=== PATIENT | female | born 1970 | race Two or more races ===

== ENCOUNTER → 2016-10-09 | Outpatient (CLI) | payer OTHER ==
[2015-05-09 08:18] VITALS: BP 110/68
[~2016-10-09] MED LIST: AMOX1TAB61 PO; CEPH-264 PO; FERR325T58 PO; IBUP100T6 PO; NAPR500T3 PO
--- NOTE | 2016-10-20 13:31 | KCIC ---
Bilateral digital screening mammograms with CAD: HISTORY Routine screening. COMPARISON Comparison is made to previous study dated 03/19/2015. FINDINGS Breast density category B. The skin and nipples show no abnormalities. No abnormal lymph nodes are seen in the axilla. The breast parenchyma shows scattered fibroglandular density. There are no dominant masses, suspicious calcifications or architectural distortions. IMPRESSION No evidence of malignancy. Recommend routine annual mammographic screening. This study was interpreted with the benefit of Computerized Aided Detection (CAD). Mammography is not 100% sensitive in detecting breast cancer. Therefore, a self breast exam and a clinical breast exam are very important. A negative mammogram does not negate a clinically suspicious finding and should not result in a delay in biopsying a clinically suspicious abnormality. BI-RADS category 1. Negative. This patient's information has been entered into a reminder system for the patient to be notified with the results of this examination and a target date for her next mammograms. Electronically signed by: Yue Frey MD (Oct 20, 2016 13:30:01)
== END | disposition home or self-care (01) ==
LOC: KCIC MAMMO 13:55
PROVIDERS: ATTEND Physician Assistant Medical
DX: Z12.31 Encounter for screening mammogram for malignant neoplasm of breast (principal)
CPT/HCPCS: G0202; 77067

== ENCOUNTER 2016-11-20 16:31 | Emergency (ER) | payer OTHER ==
[~2016-11-20] VITALS: Ht 152.4 cm; Wt 77.1 kg
[2016-11-20 17:10] VITALS: BP 117/69
[2016-11-20] MEDS ORDERED: AMOX875T PO (17:46)
--- NOTE | 2016-11-20 17:46 | PHYS DOC ---
Past Medical History Past Medical History: No Pertinent History Past Surgical History: Additional Past Surgical Histo: D &C Alcohol Use: None Drug Use: None Adult General Chief Complaint Chief Complaint: EARACHE/EAR PAIN HPI HPI Patient is a 45 year old female who presents with right ear pain and sore throat that began yesterday. Patient denies any fever coughing or congestion. Review of Systems Review of Systems Constitutional: See history of present illness Eyes: Denies change in visual acuity, redness, or eye pain [] HENT: Right ear pain and sore throat Respiratory: See history of present illness Cardiovascular: No additional information not addressed in HPI [] Musculoskeletal: Denies back pain or joint pain [] Integument: Denies rash or skin lesions [] Neurologic: Denies headache, focal weakness or sensory changes [] Endocrine: Denies polyuria or polydipsia [] Allergies Allergies Allergies Coded Allergies Type Severity Reaction Last Updated Verified No Known Drug Allergies 05/09/15 No Physical Exam Physical Exam Constitutional: Well developed, well nourished, no acute distress, non-toxic appearance. [] HENT: Normocephalic, atraumatic, bilateral external ears normal, oropharynx moist, no oral exudates, nose normal. [] Right TM is moderately injected with small amount of cloudy fluid, left TM is mildly injected. Eyes: PERRLA, EOMI, conjunctiva normal, no discharge. [] Neck: Normal range of motion, no tenderness, supple, no stridor. [] Skin: Warm, dry, no erythema, no rash. [] Back: No tenderness, no CVA tenderness. [] Extremities: No tenderness, no cyanosis, no clubbing, ROM intact, no edema. [] Neurologic: Alert and oriented X 3, normal motor function, normal sensory function, no focal deficits noted. [] Psychologic: Affect normal, judgement normal, mood normal. [] Current Patient Data Vital Signs Vital Signs Date Time Temp Pulse Resp B/P Pulse Ox O2 Delivery O2 Flow Rate FiO2 11/20/16 17:10 98.2 83 16 99 Room Air 98.2 EKG EKG [] Radiology/Procedures Radiology/Procedures [] Course & Med Decision Making Course & Med Decision Making Pertinent Labs and Imaging studies reviewed. (See chart for details) Patient has bilateral otitis media and pharyngitis. She was discharged with amoxicillin for 10 days. Tylenol/Motrin recommended for pain or fever. Follow- up with primary care doctor in 1-2 weeks. Dragon Disclaimer Dragon Disclaimer This electronic medical record was generated, in whole or in part, using a voice recognition dictation system. Departure Departure Impression: Primary Impression: Otitis media Additional Impression: Acute pharyngitis Disposition: 01 HOME, SELF-CARE Condition: STABLE Referrals: VJ MELARA (PCP) Follow-up with your own doctor in 1-2 weeks Patient Instructions: Otitis Media, Adult, Viral and Bacterial Pharyngitis Additional Instructions: You were seen for ear infection and sore throat. Please complete your antibiotics. Use saltwater gargles for sore throat. Take Tylenol or Motrin for pain or fever. Follow-up with the primary care doctor in 1-2 weeks. Scripts Amoxicillin 875 Mg Tablet1 Tab PO BID #20 TAB Prov:SARAH CHUN KARDEX CLERK 11/20/16 Problem Qualifiers Primary Impression: Otitis media Otitis media type: other nonsuppurative Laterality: bilateral Chronicity: acute Recurrence: not specified as recurrent Qualified Code: H65.193 - Other acute nonsuppurative otitis media, bilateral Additional Impression: Acute pharyngitis Pharyngitis/tonsillitis etiology: unspecified etiology Qualified Code: J02.9 - Acute pharyngitis, unspecified SARAH CHUN KARDEX CLERK Nov 20, 2016 17:46
== END 2016-11-20 17:58 | disposition home or self-care (01) ==
LOC: ER 16:31
DX: H65.193 Other acute nonsuppurative otitis media, bilateral (principal); J02.9 Acute pharyngitis, unspecified
CPT/HCPCS: 99283

== ENCOUNTER → 2017-04-27 | Day surgery (SDC) | payer OTHER ==
[~2017-04-27] MED LIST changes: +AMOX875T PO; +IV RINGERS,LACTATED 1000ML 1,000 ML IV SCH; +LIDOCAINE 1% 1 ML SYRINGE. ID PRN; +MIDAZOLAM HCL/PF 2 MG/2 ML VIAL. IV PRN; +SUCCINYLCHOLINE 200 MG/10 ML VIAL. ONE; +fentaNYL PF VIAL 100 MCG/2 ML VIAL IV PRN
[2017-04-27 13:28] LABS: NEG OBC UR NEG; POS OBC UR POS
--- NOTE | 2017-04-27 14:44 | PDOC1 ---
History and Physical Date of Admission Date of Admission DATE: 04/27/17 TIME: 14:38 Source Source: Chart review, Patient History of Present Illness History of Present Illness 46 y/o female with upper abdominal pain/dysphagia. Bloating, nausea and interscapular pain as well. 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 Not on PPI currently. Colonoscopy for anemia normal in 2014. Past Medical History Past Medical History Negative for chronic illnesses. Past Surgical History Past Surgical History "stomach surgery" Family History Family History: Cancer (breast, prostate), Diabetes Social History Smoke: <1 pack per day ALCOHOL: rare Drugs: None Current Medications Current Medications Current Medications Midazolam HCl (Versed) 2 mg PRN 1X PRN IV PRIOR TO PROCEDURE; Start 04/27/17 at 13:30; Stop 04/27/17 at 20:00 Fentanyl Citrate (Fentanyl 2ml Vial) 25 mcg PRN Q5MIN PRN IV X 2 DOSES FOR PAIN ; Start 04/27/17 at 13:30; Stop 04/27/17 at 20:00 Fentanyl Citrate (Fentanyl 2ml Vial) 50 mcg PRN Q5MIN PRN IV X 2 DOSES FOR PAIN ; Start 04/27/17 at 13:30; Stop 04/27/17 at 20:00 Ringer's Solution 1,000 ml @ 125 mls/hr Q8H IV Last administered on 04/27/17t 13:30; Start 04/27/17 at 13:19; Stop 04/28/17 at 01:18 Lidocaine HCl 2 ml 1X PRN PRN ID IV START; Start 04/27/17 at 13:30; Stop at 20:00 Active Scripts Active Reported Iron Supplement (Ferrous Sulfate) 325 Mg Tablet 1 Tab PO BID Advil (Ibuprofen) 100 Mg Tablet 100 Mg PO DAILY Allergies Allergies: Coded Allergies: Penicillins (Verified Allergy, Intermediate, 04/27/17) ROS Review of System Otherwise negative. Physical Exam General: Alert, Oriented X3, Cooperative, No acute distress Lungs: Clear to auscultation Heart: S1S2, RRR, no gallops, no murmurs Abdomen: Normal bowel sounds, Soft, No tenderness, No hepatosplenomegaly, No masses Rectal Exam: not examined Extremities: No cyanosis, No edema Skin: No significant lesion Neuro: Normal speech, Strength at 5/5 X4 ext, Normal tone, Sensation intact, Cranial nerves 3-12 NL, Reflexes 2+ Psych/Mental Status: Mental status NL, Mood NL Vitals Vitals Vital Signs Date Time Temp Pulse Resp B/P (MAP) Pulse Ox O2 Delivery O2 Flow Rate FiO2 04/27/17 13:24 98.0 73 20 100 98.0 Labs Labs Laboratory Tests Test 04/27/17 13:20 Urine Test Negative (NEG) Laboratory Tests Test 04/27/17 13:20 Urine Test Negative (NEG) VTE Prophylaxis Ordered VTE Prophylaxis Devices: No VTE Pharmacological Prophylaxi: No Assessment/Plan Assessment/Plan IMP: upper abd pain/dysphagia PLAN: EGD. ALL FRANCO MD Apr 27, 2017 14:44
--- NOTE | 2017-04-27 14:56 | PDOC4 ---
PROCEDURE Procedure EGD/polypectomy Ind: upper abdominal pain/dysphagia Meds: per anesthesia Findings: E--<grade I reflux at 40cm. No stricture, etc. G--5-6mm polyp, pedunculated, posterior wall antrum--snared off. D--Normal to second portion. Dwayne. well. IMP: Reflux, likely cause of symptoms. Gastric polyp. REC: Will recommend OTC PPI. Await path. Resume other meds, diet. F/u 2 weeks. ALL FRANCO MD Apr 27, 2017 14:56
[2017-04-27 15:08] VITALS: BP 129/87
--- NOTE | 2017-04-29 14:14 | PATHOLOGY ---
PATHOLOGY REPORT * * * * * * * * FINAL DIAGNOSIS: Gastric biopsy "body of stomach polyp": - Hyperplastic polyp. - There is no evidence of adenomatous change, high grade dysplasia or malignancy. ([facility]; 04/29/2017) REPORT ELECTRONICALLY SIGNED BY: Ismael Benavidez M.D. DATE/TIME: 04/29/2017 14:13 * * * * * * * * GROSS PATHOLOGY: Received in formalin labeled "Analy Goel, body of stomach polyp," are multiple segments of otoole soft tissue measuring from 0.2 up to 0.8 cm in maximum dimension. The specimen is submitted entirely in cassette A1. ([facility]; 04/28/17) INITIAL CPT CODE(S): A; 11107 Professional services performed [place] [facility] [address] Technical services performed by [facility] at [address] [place] [address]. SPECIMEN(S) RECEIVED: A.Body of stomach polyp CLINICAL HISTORY: Abdominal pain, dysphagia PATIENT: ANALY GOEL /AGE: 512/15/1970 (Age: 46) PATIENT #: [id number] ALT CASE #: SPECIMEN COLLECTION DATE: 04/27/2017 SPECIMEN RECEIVED DATE: 04/28/2017 [facility] - [address] [place] [address] - PHONE: [phone] * * * END OF REPORT * * *
== END | disposition home or self-care (01) ==
LOC: SURG 13:02
PROVIDERS: ATTEND Internal Medicine Gastroenterology
DX: K31.7 Polyp of stomach and duodenum (principal); K21.0 Gastro-esophageal reflux disease with esophagitis; J45.909 Unspecified asthma, uncomplicated; E66.9 Obesity, unspecified; Z68.41 Body mass index [BMI] 40.0-44.9, adult; D64.9 Anemia, unspecified; Z72.0 Tobacco use; Z88.0 Allergy status to penicillin
CPT/HCPCS: 81025; 88305; J0330

== ENCOUNTER 2018-03-22 20:35 | Emergency (ER) | payer SELFPAY, OTHER ==
[2018-03-22 20:50] LABS: URINE HCG POC HCG NEGATIVE (Negative)
[2018-03-22 20:51] LABS: BILIRUBIN,URINE NEGATIVE (NEG); CLARITY,URINE CLEAR; COLOR,URINE YELLOW; GLUCOSE,URINE NEGATIVE (NEG); NITRITE,URINE NEGATIVE (NEG); PH,URINE 6.5; PROTEIN,URINE NEGATIVE (NEG-TRACE); UROBILINOGEN,URINE 0.2 mg/dL (0.2 mg/dL)
[2018-03-22 20:55] LABS: BACTERIA,URINE 0 /HPF (0-FEW); SQUAMOUS EPITHELIAL CELL,UR FEW /LPF; WBC,URINE OCC /HPF (0-4)
== END 2018-03-22 22:46 | disposition home or self-care (01) ==
LOC: ER 20:35
DX: H66.91 Otitis media, unspecified, right ear (principal); R31.9 Hematuria, unspecified; Z98.890 Other specified postprocedural states; Z88.0 Allergy status to penicillin
CPT/HCPCS: 74176; 81001; 81025; 99285-25

== ENCOUNTER → 2021-05-22 | Outpatient (CLI) | payer OTHER ==
[2019-01-31 20:40] VITALS: BP 133/79
[~2021-05-22] MED LIST changes: +AZIT250T PO; +CONTRAST GIVEN. MC PRN; +FAMO-63 PO; +HYOS0.1265 SL; +IBUP-1060 PO; +IOHEXOL 300 MG/ML 100ML VIAL. IV ONE; -IV RINGERS,LACTATED 1000ML 1,000 ML IV SCH; -LIDOCAINE 1% 1 ML SYRINGE. ID PRN; -MIDAZOLAM HCL/PF 2 MG/2 ML VIAL. IV PRN; +NAPR-514 PO; -NAPR500T3 PO; +ONDA4TAB12 PO; -SUCCINYLCHOLINE 200 MG/10 ML VIAL. ONE; -fentaNYL PF VIAL 100 MCG/2 ML VIAL IV PRN
[2021-05-22 09:12] LABS: CREATININE 0.8 mg/dL (0.6-1.0); GFR 75.9
[2021-05-22] MEDS: IOHEXOL 240 MG/ML 50ML VIAL. PO ONE (09:30)
--- NOTE | 2021-05-22 10:27 | RAD ---
CT of the abdomen and pelvis with contrast 05/22/2021 10:20 AM Indication: Reason: GALLBLADDER MASS, OVARIAN MASS / Comparison study: CT abdomen and pelvis without contrast January 31, 2019 Technique: Multidetector CT imaging of the abdomen and pelvis was performed following the administra tion of IV contrast. Findings: The partially visualized lung bases demonstrate no acute abnormality. The gallbladder is surgically absent. The liver, spleen, bilateral adrenal glands, and pancreas, ar e grossly unremarkable. Left kidney is unremarkable. Hypodense lesion in the posterior right kidney m easures 1.9 cm, unchanged from comparison exams. No acute renal abnormality is identified. There is n o bowel obstruction. No evidence of acute inflammatory change involving visualized bowel is identifie d. Appendix is visualized and unremarkable in appearance. Bladder is grossly unremarkable. No free fl uid or free air is seen in the abdomen or pelvis. No overt adnexal masses are identified. Low-density areas of the ovaries may represent cysts. CT is limited for evaluation. No acute osseous changes are identified. Impression: 1. No evidence of acute intra-abdominal abnormality is identified. 2. Cholecystectomy noted 3. Low-density areas within the adnexa may represent cysts. CT is limited for evaluation of the ovari es. Consider pelvic ultrasound if ultrasound of the ovaries is desired. View CT DOSING PQRS STATEMENT: One or more of the following individualized dose reduction techniques were utilized for this examinat ion: 1. Automated exposure control 2. Adjustment of the mA and/or kV according to patient size 3. Use of iterative reconstruction technique Electronically signed by: Ezequiel Espinoza MD (05/22/2021 10:25 AM) [id number]
== END ==
LOC: CT 08:32
PROVIDERS: ATTEND Physician Assistant Medical
DX: N83.8 Other noninflammatory disorders of ovary, fallopian tube and broad ligament (principal); K82.8 Other specified diseases of gallbladder; Z90.49 Acquired absence of other specified parts of digestive tract
CPT/HCPCS: 36415; 74177; 82565; Q9966; Q9967